=== PATIENT | male | born 1945 | race Caucasian/White ===

== ENCOUNTER 2018-01-08 08:40 | Outpatient (RCR) | payer MEDICARE, BC, SELFPAY ==
--- NOTE | 2018-01-08 08:43 | PDOC.CNN_ITS ---
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 I gave him a list of dental providers and legal aids number. Plan of Care: as needed
== END 2018-02-05 23:59 | disposition home or self-care (01) ==
LOC: COCO 08:40
PROVIDERS: PCP Family Medicine; Visit Provider Family Medicine
DX: R69 Illness, unspecified (principal)